=== PATIENT | male | born 1950 | race Caucasian/White ===

== ENCOUNTER 2018-11-24 08:00 | Day surgery (SDC) | payer MEDICARE, OTHER ==
[~2018-11-24] VITALS: Ht 175.3 cm; Wt 78.9 kg
[~2018-11-24 08:00] MED LIST: AMITRIPTYLINE H50 MG PO; MOEXIPRIL HCL7.5 MG PO; SIMVASTATIN20 MG PO; TRAMADOL HCL50 MG PO
[2018-11-24] MEDS ORDERED: FLOMAX0.4 MG PO (08:27)
--- NOTE | 2018-11-24 11:49 | NUR ---
11/24/18 1149 [address] 1144 PATIENT ARRIVES TO PACU RESPONSIVE TO VERBAL STIMULI. WHEN ASLEEP PATIENT HAS FREQUENT SLEEP APNEA, NEEDS CONSTANT REMINDERS TO DEEP BREATHE AND COUGH, PATIENT DOES FOLLOW COMMANDS. MASK AT 6 LITERS. DENIES PAIN OR NAUSEA.
[2018-11-24] MEDS ORDERED: ULTRAM50 MG PO (13:41)
--- NOTE | 2018-11-24 15:43 | NUR ---
1240: PATIENT BACK IN DAY SURGERY ROOM FROM PACU. DENIES PAIN. DENIES NAUSEA. VS CHECKED. RIGHT ARM DRESSING CDI. C/O NUMBNESS AND TINGLING IN RIGHT FINGERS. ABLE TO MOVE RIGHT FINGERS. CAP REFILL TO RIGHT FINGERS WNL. IV SITE WNL. GIVEN ICE WATER AND JELLO. SCDs ON. CALL LIGHT WITHIN REACH. AT BEDSIDE. 1300: PATIENT ASSISTED OOB AND TO BATHROOM. GAIT STEADY. VOID WITHOUT DIFFICULTY. GAIT STEADY BACK TO ROOM/BED. SCDs REPLACED. CALL LIGHT WITHIN REACH. AT BEDSIDE.
--- NOTE | 2018-11-24 15:49 | NUR ---
1400: PATIENT ASSISTED OOB AND TO BATHROOM. GAIT STEADY. PATIENT ASSISTED TO GET DRESSED BY . DISCHARGE INSTRUCTIONS GIVEN TO PATIENT AND . IV DC'D WNL. TIP INTACT. DRESSING APPLIED. 1415: PATIENT DISCHARGED TO HOME VIA WHEELCHAIR WITH .
--- NOTE | 2018-12-06 07:17 | OR ---
[facility] [address] [place], [place] [address] Signed DATE OF OPERATION: 11/24/2018 SURGEON: Loc Plasencia MD PREOPERATIVE DIAGNOSIS: Rupture of distal biceps tendon, right elbow. POSTOPERATIVE DIAGNOSIS: Rupture of distal biceps tendon, right elbow. PROCEDURE: Repair of right biceps tendon rupture. ANESTHESIA: General. SPECIMENS AND COMPLICATIONS: There were no specimens or complications. TOURNIQUET TIME: Around 45 minutes. WHAT WAS DONE: The patient was taken to the operating room. After anesthesia was induced and airway secured, the patient was positioned, prepped and draped in the routine sterile fashion. The arm was exsanguinated with an Esmarch bandage. Pneumatic tourniquet was inflated to 250 mm of pressure about the upper arm. A transverse skin incision was then made about 3.5 cm distal to the antecubital flexion crease. Skin was divided sharply. Subcutaneous tissue was bluntly spread. The lateral antebrachial cutaneous nerve was identified and retracted laterally. We then used basically a fingertip dissection to follow down the mobile wad in the middle. This led us right down to the radial tuberosity. Blunt dissection also exposed and the remaining portion of the biceps tendon, which had avulsed from the tuberosity. The tendon was delivered into the wound. We placed a whipstitch of #5 FiberWire through it and then sized it, so it would pass through the 7 mm Sizer. We then allowed this to retract into the upper arm. We then used a small periosteal elevator to expose the bone at the base of the radial tuberosity. We then drilled the spade tip pin through and then drilled the anterior side with a 7 mm reamer. We then assembled the button on the previously placed FiberWire suture and used the button buckle wire inserter to pass it through the anterior hole and the posterior hole. We then able to flip the button and by tensioning the sutures, we Electronically Signed By: LOC PLASENCIA MD 12/06/18 0717 PATIENT NAME: MIRTHA LUNSFORD OPERATIVE REPORT DATE OF : 50 REPORT #: [id number] PHYSICIAN: LOC PLASENCIA MD PCP: TAHMINA OLSON MD REPORT IS CONFIDENTIAL AND NOT TO BE RELEASED WITHOUT AUTHORIZATION [address] [address] Signed were able to dock the tendon into the hole previously drilled. We then passed the suture back through the tendon and tied it securely. We then placed one branch of the suture through the Bio-Corkscrew and then placed it in the previously drilled 7 mm hole. We then augmented the fixation with the BioScrew. We then tied the two limbs of the suture over the top of the BioScrew. At this point, we had solid fixation with good reconstitution of the biceps contour. The wound was copiously irrigated and closed in a standard fashion. A sterile dressing and posterior splint were placed. The patient was awakened and taken to the recovery room where he arrived in stable condition. Counts were correct and antibiotic protocols were followed. Loc Plasencia MD WFB/NYLAL /[id number] Copies: ~ Electronically Signed By: LOC PLASENCIA MD 12/06/18 0717 PATIENT NAME: MIRTHA LUNSFORD OPERATIVE REPORT DATE OF : 50 REPORT #: [id number] PHYSICIAN: LOC PLASENCIA MD PCP: TAHMINA OLSON MD REPORT IS CONFIDENTIAL AND NOT TO BE RELEASED WITHOUT AUTHORIZATION
== END 2018-11-24 14:15 | disposition home or self-care (01) ==
LOC: DS 08:00 → OPS 08:00 → DS 10:15 → OPS 10:15
PROVIDERS: Orthopaedic Surgery
PROC: 0LQ30ZZ Repair Right Upper Arm Tendon, Open Approach (ICD-10-PCS; principal; 2018-11-24 10:15)
DX: S46.211A Strain of muscle, fascia and tendon of other parts of biceps, right arm, initial encounter (principal); I10 Essential (primary) hypertension; E78.00 Pure hypercholesterolemia, unspecified; Z79.899 Other long term (current) drug therapy; X50.0XXA Overexertion from strenuous movement or load, initial encounter
CPT/HCPCS: 01710; 64415; 76942; C1713; J0690; J1100; J2250; J2405; J2704; J2765; J2795; J3010; J7120

== ENCOUNTER 2018-11-25 10:47 | Emergency (ER) | payer MEDICARE, OTHER ==
[~2018-11-25] VITALS: Ht 175.3 cm; Wt 78.9 kg
[~2018-11-25 10:47] MED LIST changes: +FLOMAX0.4 MG PO; +ULTRAM50 MG PO
== END 2018-11-25 11:15 | disposition home or self-care (01) ==
LOC: ED 10:47
DX: Z76.0 Encounter for issue of repeat prescription (principal)

== ENCOUNTER 2019-02-02 07:32 | Day surgery (SDC) | payer MEDICARE, OTHER ==
[~2019-02-02] VITALS: Ht 175.3 cm; Wt 82.5 kg
--- NOTE | 2019-02-02 09:24 | NUR ---
02/02/19 0924 [address] 0920 PATIENT SLEEPING, SIGNIFICANT PERIODS OF APNEA BUT WAKES UP EASILY WITH VERBAL STIMULI. NEEDS VERY FREQUENT REMINDING TO DEEP BREATHE. RESP EVEN AND UNLABORED, NC AT 3 LITERS.
--- NOTE | 2019-02-02 13:25 | NUR ---
PT RERCENTLY HAD SURGERY ON HOS R ARM AND WHILE HERE BEGAN A DISCUSSION ABOUT DIFFICULTY HE WAS HAVING SWOLLOWING. THAT TIME LED US TO TODAY, WHERE PT IS HERE FOR EGD. HE IS ALERT, ORIENTED AND SUPPORTED BY HIS SONIA. THEY BOTH ARE PLEASANT AND FELT THEY UNDERSTOOD WHAT WAS HAPPENING TODAY. EXTENDED A BLESSING, AND WILL FOLLOW NEEDED
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
== END 2019-02-02 10:10 | disposition home or self-care (01) ==
LOC: DS 07:32 → OPS 07:32 → DS 09:00 → OPS 10:10
PROVIDERS: Colon & Rectal Surgery
PROC: 0DB78ZX Excision of Stomach, Pylorus, Via Natural or Artificial Opening Endoscopic, Diagnostic (ICD-10-PCS; principal; 2019-02-02 09:00)
DX: K29.50 Unspecified chronic gastritis without bleeding (principal); K44.9 Diaphragmatic hernia without obstruction or gangrene; E78.5 Hyperlipidemia, unspecified; G89.4 Chronic pain syndrome; I10 Essential (primary) hypertension; Z98.1 Arthrodesis status; Z93.0 Tracheostomy status; Z98.890 Other specified postprocedural states; Z79.899 Other long term (current) drug therapy
CPT/HCPCS: 86677; 99153; G0500; J2250; J3010; J7120

== ENCOUNTER 2023-11-08 10:03 | Emergency (ER) | payer OTHER, MEDICARE ==
[~2023-11-08] VITALS: Ht 175.3 cm; Wt 89.6 kg
[2023-11-08] MEDS ORDERED: CEPHALEXIN500 M1 PO (11:29)
[2023-11-08 11:45] VITALS: BP 189/88
== END 2023-11-08 11:45 | disposition home or self-care (01) ==
LOC: ED 10:03
DX: S62.633B Displaced fracture of distal phalanx of left middle finger, initial encounter for open fracture (principal); V89.9XXA Person injured in unspecified vehicle accident, initial encounter; Z79.899 Other long term (current) drug therapy
CPT/HCPCS: 73140; A9270